=== PATIENT | female | born 1975 | race African-American/Black ===

== ENCOUNTER 2017-06-09 09:13 | Day surgery (SDC) | payer OTHER ==
[2017-06-07 11:34] VITALS: BMI 30.4
[2017-06-09] MEDS ORDERED: PROPOFOL 20 ML ONE (09:15)
[2017-06-09] MEDS ORDERED: LIDOCAINE HCL/PF 2% SDV 5ML VIAL ONE (09:15)
[2017-06-09 13:36] VITALS: TEMP 97.5
[2017-06-09 14:17] VITALS: BP 134/83; PULSE 65
--- NOTE | 2017-06-11 17:03 | PATH ---
Surgical Pathology Report Patient Name: ASA GODDARD [facility]. Rec. #: [id number] /Age/Gender: 1975 (Age: 41) / F Account: [id number] Location: [facility]-ENDOSCOPY Taken: 06/09/2017 Received: 06/09/2017 Reported: 06/11/2017 Physicians: Renetta Lees M.D. Specimen(s) Received A: BIOPSY OF SECOND PORTION OF DUODENUM B: BX ANTRUM C: BX GE JUNCTION Clinical History Upper abdominal pain Postoperative diagnosis: gastritis Final Diagnosis A. DUODENUM, SECOND PORTION, BIOPSY: DUODENAL MUCOSA WITHOUT SIGNIFICANT PATHOLOGIC FINDINGS. B. STOMACH, ANTRUM, BIOPSY: GASTRIC ANTRAL MUCOSA WITH MILD CHRONIC GASTRITIS. IMMUNOHISTOCHEMICAL STAIN FOR H. PYLORI IS NEGATIVE. C. GASTROESOPHAGEAL (GE) JUNCTION BIOPSY: SQUAMOCOLUMNAR MUCOSA WITH MILD CHRONIC INFLAMMATION AND CHANGES OF MILD REFLUX ESOPHAGITIS. NO INTESTINAL METAPLASIA OR DYSPLASIA IDENTIFIED. Electronically Signed Renetta Faust M.D. Gross Description A. Received in formalin, labeled "second portion duodenum" is a delgado, irregular portion of soft tissue measuring 0.3 cm. in greatest dimension. The specimen is submitted in toto in one cassette. B. Received in formalin, labeled "BX antrum" is a delgado, irregular portion of soft tissue measuring 0.3 cm. in greatest dimension. The specimen is submitted in toto in one cassette. C. Received in formalin, labeled "BX GE junction" is a delgado, irregular portion of soft tissue measuring [ ] cm. in greatest dimension. The specimen is submitted in toto in one cassette. DANIKA/06/10/2017 chris/06/10/2017
== END 2017-06-09 14:10 | disposition home or self-care (01) ==
LOC: FASU-ENDO 09:13
PROVIDERS: ATTEND Internal Medicine Gastroenterology
PROC: 0DB68ZX Excision of Stomach, Via Natural or Artificial Opening Endoscopic, Diagnostic (ICD-10-PCS; 2017-06-09)
PROC: 0DB48ZX Excision of Esophagogastric Junction, Via Natural or Artificial Opening Endoscopic, Diagnostic (ICD-10-PCS; 2017-06-09)
PROC: 0DB98ZX Excision of Duodenum, Via Natural or Artificial Opening Endoscopic, Diagnostic (ICD-10-PCS; principal; 2017-06-09 11:30)
DX: K29.50 Unspecified chronic gastritis without bleeding (principal); K21.0 Gastro-esophageal reflux disease with esophagitis; R10.9 Unspecified abdominal pain
CPT/HCPCS: 84703

== ENCOUNTER 2017-07-21 10:07 | Day surgery (SDC) | payer OTHER ==
[2017-07-19 13:24] VITALS: BMI 30.1
[2017-07-21] MEDS ORDERED: PROPOFOL 20 ML ONE ×2 (10:33)
[2017-07-21 12:21] VITALS: TEMP 98.3
[2017-07-21 12:50] VITALS: BP 122/72; PULSE 71
--- NOTE | 2017-07-23 16:37 | PATH ---
Surgical Pathology Report Patient Name: ASA GODDARD [facility] [place]. Rec. #: [id number] /Age/Gender: 1975 (Age: 41) / F Account: [id number] Location: [facility]-ENDOSCOPY Taken: 07/21/2017 Received: 07/21/2017 Reported: 07/23/2017 Physicians: Renetta Lees M.D. Specimen(s) Received A: RIGHT COLON B: TRANSVERSE COLON C: DESCENDING COLON Clinical History Abdominal pain, acute gastritis, chronic diarrhea Post-op diagnosis: Hemorrhoids Final Diagnosis A. RIGHT COLON, BIOPSY: SCANT COLONIC MUCOSA WITH NO SIGNIFICANT PATHOLOGIC FINDINGS. B. TRANSVERSE COLON, BIOPSY: COLONIC MUCOSA SHOWING SMALL BENIGN/REACTIVE LYMPHOID AGGREGATE. C. DESCENDING COLON, BIOPSY: COLONIC MUCOSA SHOWING SMALL BENIGN/REACTIVE LYMPHOID AGGREGATE. Electronically Signed Sherry Dugan M.D. Gross Description A. Received in formalin, labeled "right colon" is a delgado, irregular portion of soft tissue measuring 0.2 cm. in greatest dimension. The specimen is submitted in toto in one cassette. B. Received in formalin, labeled "transverse" is a delgado, irregular portion of soft tissue measuring 0.4 cm. in greatest dimension. The specimen is submitted in toto in one cassette. C. Received in formalin, labeled "descending" is a delgado, irregular portion of soft tissue measuring 0.4 cm. in greatest dimension. The specimen is submitted in toto in one cassette. 07/22/2017 saudi07/22/2017
== END 2017-07-21 12:40 | disposition home or self-care (01) ==
LOC: FASU-ENDO 10:07
PROVIDERS: ATTEND Internal Medicine Gastroenterology
PROC: 0DBL8ZX Excision of Transverse Colon, Via Natural or Artificial Opening Endoscopic, Diagnostic (ICD-10-PCS; 2017-07-21)
PROC: 0DBN8ZX Excision of Sigmoid Colon, Via Natural or Artificial Opening Endoscopic, Diagnostic (ICD-10-PCS; 2017-07-21)
PROC: 0DBM8ZX Excision of Descending Colon, Via Natural or Artificial Opening Endoscopic, Diagnostic (ICD-10-PCS; 2017-07-21)
PROC: 0DBH8ZX Excision of Cecum, Via Natural or Artificial Opening Endoscopic, Diagnostic (ICD-10-PCS; 2017-07-21)
PROC: 0DBK8ZX Excision of Ascending Colon, Via Natural or Artificial Opening Endoscopic, Diagnostic (ICD-10-PCS; principal; 2017-07-21 11:49)
DX: R19.7 Diarrhea, unspecified (principal); K64.1 Second degree hemorrhoids
CPT/HCPCS: 84703